=== PATIENT | female | born 1990 | race Two or more races ===

== ENCOUNTER 2017-08-19 21:01 | Emergency (ER) | payer OTHER ==
[2017-08-19] MEDS ORDERED: Diphtheria,Pertussis(Acell),Tetanus Vaccine 0.5 ML Syringe IM ONE (21:11)
[2017-08-19 21:39] LABS: CHLORIDE,CL 103 mmol/L (98-107); SODIUM,NA 138 mmol/L (136-145)
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
[2017-08-19] MEDS ORDERED: Diphtheria,Pertussis(Acell),Tetanus Vaccine 0.5 ML Syringe ONE (23:07)
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
== END 2017-08-20 00:12 | disposition home or self-care (01) ==
LOC: MERGE 21:01 → MW.ED 21:01
DX: S02.5XXA Fracture of tooth (traumatic), initial encounter for closed fracture (principal); S00.212A Abrasion of left eyelid and periocular area, initial encounter; Z23 Encounter for immunization; V89.2XXA Person injured in unspecified motor-vehicle accident, traffic, initial encounter
CPT/HCPCS: 36415; 70450; 70450-26; 70486; 70486-26; 71260; 71260-26; 72125; 72125-26; 73080-26-RT; 73080-RT; 74177; 74177-26; 80053; 80305; 81001; 81025; 85025; 90471; 90715; 99284-25

== ENCOUNTER 2018-06-11 20:11 | Emergency (ER) | payer BC ==
[2018-06-11] MEDS ORDERED: Sodium Chloride 0.9% 1,000 ML IV ONE (20:19)
[2018-06-11] MEDS ORDERED: Metoclopramide 10 MG/2 ML SDV IV ONE (20:19)
[2018-06-11] MEDS ORDERED: Ondansetron 4 MG/2 ML SDV IVPUSH ONE (20:19)
[2018-06-11] MEDS ORDERED: diphenhydrAMINE 50 MG/ML SDV IVPUSH ONE (20:19)
[2018-06-11] MEDS ORDERED: Ketorolac 30 MG/ML SDV IVPUSH ONE (20:19)
--- NOTE | 2018-06-11 20:26 | EDM.PDOC ---
ED HPI GENERAL MEDICAL PROBLEM - General Chief Complaint: Headache Stated Complaint: PT HAS MIGRAINE Time Seen by Provider: 06/11/18 20:19 Source of Information: Reports: Patient History Limitations: Reports: No Limitations - History of Present Illness INITIAL COMMENTS - FREE TEXT/NARRATIVE: HISTORY AND PHYSICAL: History of present illness: Patient is a 27-year-old female who presents to the emergency room with complaints of a migraine headache, light sensitivity and noise sensitivity and muscular neck pain. She states she has tried [id number] Excedrin Migraine without any relief. Has no prior history to migraines. Patient denies any fever, chills, change in vision, syncope or near syncope. Denies any chest pain, back pain, shortness of breath or cough. Denies any abdominal pain, vomiting, diarrhea, constipation or dysuria. Has not noted any blood in urine or stool. Patient has been eating and drinking appropriately. Review of systems: As per history of present illness and below otherwise all systems reviewed and negative. Past medical history: As per history of present illness and as reviewed below otherwise noncontributory. Surgical history: As per history of present illness and as reviewed below otherwise noncontributory. Social history: See social history for further information Family history: As per history of present illness and as reviewed below otherwise noncontributory. Physical exam: General: Well-developed and well-nourished 27-year-old -[place] female. Alert and oriented. Nontoxic appearing and in no acute distress. HEENT: Atraumatic, normocephalic, pupils equal and reactive bilaterally, negative for conjunctival pallor or scleral icterus, mucous membranes moist, TMs normal bilaterally, throat clear, neck supple, nontender, trachea midline. No drooling or trismus noted. No nuchal rigidity. No meningeal signs. No hot potato voice noted. Lungs: Clear to auscultation, breath sounds equal bilaterally, chest nontender. Heart: S1S2, regular rate and rhythm without overt murmur Abdomen: Soft, nondistended, nontender. Negative for masses. Negative for costovertebral tenderness. Pelvis: Stable nontender. Genitourinary: Deferred. Rectal: Deferred. Skin: Intact, warm, dry. No lesions or rashes noted. Extremities: Atraumatic, moves all extremities per self with difficulty or deficits, negative for cords or calf pain. Neurovascular unremarkable. Neuro: Awake, alert, oriented. Cranial nerves II through XII unremarkable. Cerebellum unremarkable. Motor and sensory unremarkable throughout. Exam nonfocal. Notes: This patient has no previous history of migraine headaches and she states this is severe I will do a head CT at this time. She does have a ride to home. We'll give her IV medications to help alleviate her discomfort. Head CT shows no acute findings. Patient does feel improvement after IV fluid and medications. Vital signs are stable. Patient's friend will drive her home. Supportive care measures were reviewed and discussed. Voices understanding and is agreeable to plan of care. Denies any further questions or concerns at this time. Diagnostics: Head CT, hCG U Therapeutics: IV fluid, Toradol, Zofran, Reglan, Benadryl Prescription: None Impression: Migraine headache Plan: 1. Please take the remainder of the day to rest in a dark and quiet room. The medications he received will cause drowsiness a do not drive for the rest of the day. 2. Tylenol and/or ibuprofen as needed for pain management. 3. Please follow-up with your primary caregiver as we discussed. Return to the ED as needed and as discussed. Definitive disposition and diagnosis as appropriate pending reevaluation and review of above. headache Pain Score (Numeric/FACES): 10 - Related Data Allergies Allergy/AdvReac Type Severity Reaction Status Date / Time No Known Allergies Allergy Verified 06/11/18 20:18 Home Meds: Home Meds . [No Known Home Meds] 08/19/17 [History] Past Medical History - Past Health History Medical/Surgical History: Denies Medical/Surgical History Social & Family History - Family History Family Medical History: Noncontributory - Tobacco Use Smoking Status *Q: Never Smoker Second Hand Smoke Exposure: No - Caffeine Use Caffeine Use: Reports: None - Recreational Drug Use Recreational Drug Use: No ED ROS GENERAL - Review of Systems Review Of Systems: ROS reveals no pertinent complaints other than HPI. - Physical Exam Exam: See Below (See dictation) Course - Vital Signs Last Recorded V/S: Last Vital Signs Temp 98.8 F 06/11/18 20:17 Pulse 95 06/11/18 21:01 Resp 18 06/11/18 20:17 BP 116/75 06/11/18 21:01 Pulse Ox 96 06/11/18 21:01 - Orders/Labs/Meds Orders: Active Orders 24 hr Category Date Time Status Head wo Cont [CT] Stat Exams 06/11/18 20:22 Taken Labs: Laboratory Tests 06/11/18 Range/Units 20:24 Urine HCG, Qual NEGATIVE (NEGATIVE) Meds: Medications Discontinued Medications Generic Name Dose Route Start Last Admin Trade Name Tina PRN Reason Stop Dose Admin Diphenhydramine HCl 50 mg 06/11/18 20:19 06/11/18 20:54 Benadryl IVPUSH 06/11/18 20:20 50 mg ONETIME ONE Administration Sodium Chloride 1,000 mls @ 999 mls/hr 06/11/18 20:19 06/11/18 20:45 Normal Saline IV 06/11/18 21:19 999 mls/hr STAT ONE Administration Ketorolac Tromethamine 30 mg 06/11/18 20:19 06/11/18 20:53 Toradol IVPUSH 06/11/18 20:20 30 mg ONETIME ONE Administration Metoclopramide HCl 5 mg 06/11/18 20:19 06/11/18 20:52 Reglan IV 06/11/18 20:20 5 mg ONETIME ONE Administration Ondansetron HCl 4 mg 06/11/18 20:19 06/11/18 20:51 Zofran IVPUSH 06/11/18 20:20 4 mg ONETIME ONE Administration Departure - Departure Time of Disposition: 21:39 Disposition: Home, Self-Care 01 Clinical Impression: Migraine - Discharge Information Instructions: Migraine Headache, [id number] Forms: ED Department Discharge Additional Instructions: The following information is given to patients seen in the emergency department who are being discharged to home. This information is to outline your options for follow-up care. We provide all patients seen in our emergency department with a follow-up referral. The need for follow-up, as well as the timing and circumstances, are variable depending upon the specifics of your emergency department visit. If you don't have a primary care physician on staff, we will provide you with a referral. We always advise you to contact your personal physician following an emergency department visit to inform them of the circumstance of the visit and for follow-up with them and/or the need for any referrals to a consulting specialist. The emergency department will also refer you to a specialist when appropriate. This referral assures that you have the opportunity for follow-up care with a specialist. All of these measure are taken in an effort to provide you with optimal care, which includes your follow-up. Under all circumstances we always encourage you to contact your private physician who remains a resource for coordinating your care. When calling for follow-up care, please make the office aware that this follow-up is from your recent emergency room visit. If for any reason you are refused follow-up, please contact the [facility] Emergency Department at and asked to speak to the emergency department charge nurse. [facility] [address] [place] [id number] [facility] [address] [place] [id number] 1. The medications you received will cause drowsiness, so do not drive for the rest of the day. Please take the remainder of the day to rest in a dark and quiet room. 2. Tylenol and/or ibuprofen as needed for pain management. 3. Please follow-up with your primary caregiver as we discussed. Return to the ED as needed and as discussed. - My Orders Last 24 Hours: My Active Orders 06/11/18 20:22 Head wo Cont [CT] Stat - Assessment/Plan Last 24 Hours: My Active Orders 06/11/18 20:22 Head wo Cont [CT] Stat
--- NOTE | 2018-06-11 21:54 | CT ---
INDICATION: Headache. TECHNIQUE: Multiple axial images were obtained through the brain without contrast. Sagittal and coronal re-formatted images were obtained. COMPARISON: 08/19/2017. FINDINGS: The ventricles and sulci are within normal limits. There is no mass effect or midline shift. There is no intracranial hemorrhage. The damian-white matter differentiation is unremarkable. There is no fracture identified on bone windows. IMPRESSION: No acute intracranial abnormality. Dictated by Wilbert Rockwell MD @ 06/11/2018 9:52:46 PM Please note that all CT scans at this facility use dose modulation, iterative reconstruction, and/or weight-based dosing when appropriate to reduce radiation dose to as low as reasonably achievable. Dictated by: Wilbert Rockwell MD @ 06/11/2018 21:53:32 (Electronically Signed)
== END 2018-06-11 22:17 | disposition home or self-care (01) ==
LOC: MW.ED 20:11
DX: G43.909 Migraine, unspecified, not intractable, without status migrainosus (principal)
CPT/HCPCS: 70450; 81025; 96361; 96374; 96375; 99284; J1200; J1885; J2405; J2765; J7040

== ENCOUNTER 2020-05-17 18:08 | Day surgery (SDC) | payer BC ==
[2020-05-17] MEDS ORDERED: Glucagon,Human Recombinant 1 MG Vial IVPUSH ONE (18:23)
[2020-05-17] MEDS ORDERED: Sodium Chloride 0.9% 1,000 ML IV ONE (18:43)
--- NOTE | 2020-05-17 19:24 | EDM.PDOC ---
ED HPI GENERAL MEDICAL PROBLEM - General Chief Complaint: ENT Problem Stated Complaint: abjust STUCK IN THROAT Time Seen by Provider: 05/17/20 18:10 Source of Information: Reports: Patient History Limitations: Reports: No Limitations - History of Present Illness INITIAL COMMENTS - FREE TEXT/NARRATIVE: HISTORY AND PHYSICAL: History of present illness: Patient is a 29-year-old female who presents emergency room today with concern of food stuck in her throat since noon. Patient states that she was eating a chicken thigh and on her first bite noted that the food got stuck. Patient states that she has not been able to eat or drink anything without immediately vomiting since. Patient states that she did try diet Coke at home but this did not work. Patient denies any health history or any other associated symptoms. Patient denies fever, chills, chest pain, shortness of breath, or cough. Denies headache, neck stiff ness, change in vision, syncope, or near syncope. Denies nausea, vomiting, abdominal pain, diarrhea, constipation, or dysuria. Has not noted any blood in urine or stool. Patient has been eating and drinking appropriately. Review of systems: As per history of present illness and below otherwise all systems reviewed and negative. Past medical history: As per history of present illness and as reviewed below otherwise noncontributory. Surgical history: As per history of present illness and as reviewed below otherwise noncontributory. Social history: See social history for further information Family history: As per history of present illness and as reviewed below otherwise noncontributory. Physical exam: General: Patient is alert, oriented, and in no acute distress. Patient sitting comfortably on exam table. Vitals stable and reviewed by me. HEENT: Atraumatic, normocephalic, pupils equal and reactive bilaterally, negative for conjunctival pallor or scleral icterus, mucous membranes moist, TMs normal bilaterally, throat clear, neck supple, nontender, trachea midline. No drooling or trismus noted. No meningeal signs. No hot potato voice noted. Lungs: Clear to auscultation, breath sounds equal bilaterally, chest nontender. Heart: S1S2, regular rate and rhythm without overt murmur Abdomen: Soft, nondistended, nontender. Negative for masses or hepatosplenomegaly. Negative for costovertebral tenderness. Pelvis: Stable nontender. Genitourinary: Deferred. Rectal: Deferred. Skin: Intact, warm, dry. No lesions or rashes noted. Extremities: Atraumatic, negative for cords or calf pain. Neurovascular unremarkable. Neuro: Awake, alert, oriented. Cranial nerves II through XII unremarkable. Cerebellum unremarkable. Motor and sensory unremarkable throughout. Exam nonfocal. Notes: Patient was given coca-cola upon arrival with immediate emesis and inability to tolerate PO intake. Glucagon given with repeat trial of PO intake with immediate emesis and inability to tolerate PO intake. Dr. Harrington, general surgery, consulted on patient and has come in to personally see and evaluate the patient. Will transfer to the OR to Dr. Harrington, Voices understanding and is agreeable to plan of care. Denies any further questions or concerns at this time. Diagnostics: COVID Therapeutics: Glucagon, NS, Impression: Esophageal food bolus Plan: Transfer to the OR to Dr. Harrington, general surgery Definitive disposition and diagnosis as appropriate pending reevaluation and review of above. - Related Data Allergies Allergy/AdvReac Type Severity Reaction Status Date / Time No Known Allergies Allergy Verified 05/17/20 18:21 Home Meds: Home Meds . [No Known Home Meds] 08/19/17 [History] Past Medical History - Past Health History Medical/Surgical History: Denies Medical/Surgical History - Infectious Disease History Infectious Disease History: Reports: None Social & Family History - Family History Family Medical History: No Pertinent Family History - Tobacco Use Tobacco Use Status *Q: Never Tobacco User - Caffeine Use Caffeine Use: Reports: None - Recreational Drug Use Recreational Drug Use: No ED ROS GENERAL - Review of Systems Review Of Systems: Comprehensive ROS is negative, except as noted in HPI. ED EXAM, GENERAL - Physical Exam Exam: See Below (see dictation) Course - Vital Signs Last Recorded V/S: Last Vital Signs Temp 97.6 F 05/17/20 21:30 Pulse 71 05/17/20 22:15 Resp 18 05/17/20 22:15 BP 128/68 05/17/20 22:15 Pulse Ox 96 05/17/20 22:15 - Orders/Labs/Meds Orders: Active Orders 24 hr Category Date Time Status Oxygen Therapy [RC] PRN Care 05/17/20 19:24 Active Pulse Oximetry [RC] INTERMITTENT Care 05/17/20 20:52 Active Ready for Discharge [RC] PER UNIT ROUTINE Care 05/17/20 21:08 Active Up ad Sana [RC] ASDIRECTED Care 05/17/20 20:52 Active Vital Signs [RC] PER UNIT ROUTINE Care 05/17/20 19:24 Active Vital Signs [RC] PER UNIT ROUTINE Care 05/17/20 20:52 Active Advance Diet Instructions [DIET] Diet 05/17/20 Breakfast Active Nothing per Oral After Midnight Diet [DIET] Diet 05/17/20 Dinner Active Lactated Ringers [Ringers, Lactated] 1,000 ml Med 05/17/20 21:00 Active IV ASDIRECTED Resuscitation Status Routine Resus Stat 05/17/20 19:23 Ordered Medication Orders Lactated Ringer's (Ringers, Lactated) 1,000 mls @ 125 mls/hr IV ASDIRECTED CAROLA Labs: Laboratory Tests 05/17/20 05/17/20 Range/Units 18:42 19:56 Urine HCG, Qual NEGATIVE (NEGATIVE) Influenza Type A RNA NEGATIVE (NEGATIVE) Influenza Type B RNA NEGATIVE (NEGATIVE) SARS-CoV-2 RNA (THERESA) NEGATIVE (NEGATIVE) Meds: Medications Generic Name Dose Route Start Last Admin Trade Name Freq PRN Reason Stop Dose Admin Lactated Ringer's 1,000 mls @ 125 mls/hr 05/17/20 21:00 Ringers, Lactated IV ASDIRECTED CAROLA Discontinued Medications Generic Name Dose Route Start Last Admin Trade Name Freq PRN Reason Stop Dose Admin Glucagon 1 mg 05/17/20 18:23 05/17/20 18:32 Glucagon,Human Recombinant 1 Mg Vial IVPUSH 05/17/20 18:24 1 mg ONETIME ONE Administration Glycopyrrolate Confirm 05/17/20 19:43 Glycopyrrolate 0.2 Mg/Ml Sdv Administered 05/17/20 19:44 Dose 0.2 mg .ROUTE .STK-MED ONE Sodium Chloride 1,000 mls @ 999 mls/hr 05/17/20 18:43 05/17/20 18:52 Normal Saline IV 05/17/20 19:43 999 mls/hr STAT ONE Administration Lactated Ringer's 1,000 mls @ 125 mls/hr 05/17/20 19:30 Ringers, Lactated IV ASDIRECTED CAROLA Lidocaine Confirm 05/17/20 19:43 Lidocaine 2% 5 Ml Sdv Administered 05/17/20 19:44 Dose 5 ml .ROUTE .STK-MED ONE Midazolam HCl Confirm 05/17/20 19:40 Midazolam 1 Mg/Ml 2 Ml Sdv Administered 05/17/20 19:41 Dose 2 mg .ROUTE .STK-MED ONE Propofol Confirm 05/17/20 19:40 Propofol 200 Mg/20 Ml Sdv Administered 05/17/20 19:41 Dose 200 mg .ROUTE .STK-MED ONE Propofol Confirm 05/17/20 20:23 Propofol 200 Mg/20 Ml Sdv Administered 05/17/20 20:24 Dose 200 mg .ROUTE .STK-MED ONE Departure - Departure Time of Disposition: 19:23 Disposition: Still A Patient 28 Clinical Impression: Food impaction of esophagus Qualifiers: Encounter type: initial encounter Qualified Code(s): T18.128A - Food in esophagus causing other injury, initial encounter - Discharge Information Sepsis Event Note (ED) - Evaluation Sepsis Screening Result: No Definite Risk - Focused Exam Vital Signs: Vital Signs Temp Pulse Resp BP Pulse Ox 05/17/20 22:15 71 18 128/68 96 05/17/20 22:00 80 116/65 95 05/17/20 21:45 85 18 113/63 96 05/17/20 21:30 97.6 F 86 16 130/74 97 05/17/20 21:17 95 22 H 125/76 98 05/17/20 21:12 99 20 124/67 100 05/17/20 21:08 101 H 19 112/72 100 05/17/20 21:02 106 H 26 H 106/63 96 05/17/20 20:56 98.2 F 103 H 22 H 109/55 L 94 L 05/17/20 18:19 97.0 F 76 16 113/72 96
--- NOTE | 2020-05-17 19:29 | PCM.CONS ---
H&P History of Present Illness - General Date of Service: 05/17/20 Admit Problem/Dx: Foreign body obstruction of the esophagus Source of Information: Patient History Limitations: Reports: No Limitations - History of Present Illness Initial Comments - Free Text/Narative: Patient is a 29-year-old female who was eating chicken this morning about 11 AM. The food became stuck in her esophagus and she has been unable to clear this. She has had this problem in the past, but is always been able to resolve it without medical assistance. She has never required emergent endoscopy for foreign body removal. Onset of Symptoms: Reports: Today Symptom Onset Date: 05/17/20 Symptom Onset Time: 11:00 Duration of Symptoms: Reports: Hour(s): Location: Reports: Chest Quality: Reports: Pressure Severity: Moderate Improves with: Reports: None Worsens with: Reports: Eating Associated Symptoms: Reports: No Other Symptoms - Related Data Allergies/Adverse Reactions: Allergies Allergy/AdvReac Type Severity Reaction Status Date / Time No Known Allergies Allergy Verified 05/17/20 18:21 Home Medications: Home Meds . [No Known Home Meds] 08/19/17 [History] Past Medical History - Past Health History Medical/Surgical History: Denies Medical/Surgical History - Infectious Disease History Infectious Disease History: Reports: None Social & Family History - Family History Family Medical History: No Pertinent Family History - Tobacco Use Tobacco Use Status *Q: Never Tobacco User - Caffeine Use Caffeine Use: Reports: None - Recreational Drug Use Recreational Drug Use: No H&P Review of Systems - Review of Systems: Review Of Systems: See Below General: Denies: Fever, Chills, Malaise, Weakness, Fatigue HEENT: Reports: No Symptoms Pulmonary: Denies: Shortness of Breath, Wheezing Cardiovascular: Denies: Chest Pain, Palpitations, Dyspnea on Exertion Gastrointestinal: Reports: Nausea, Vomiting. Denies: Abdominal Pain, Anorexia, Constipation, Diarrhea, Distension, Flatus Genitourinary: Reports: No Symptoms Musculoskeletal: Reports: No Symptoms Skin: Reports: No Symptoms Psychiatric: Reports: No Symptoms Neurological: Reports: No Symptoms Hematologic/Lymphatic: Reports: No Symptoms Immunologic: Reports: No Symptoms Exam - Exam Exam: See Below - Vital Signs Vital Signs: Last Vital Signs Temp 97.0 F 05/17/20 18:19 Pulse 76 05/17/20 18:19 Resp 16 05/17/20 18:19 BP 113/72 05/17/20 18:19 Pulse Ox 96 05/17/20 18:19 Weight: 150 lb - Exam Quality Assessment: No: Supplemental Oxygen, DVT Prophylaxis General: Alert, Oriented, Cooperative, Moderate Distress HEENT: Conjunctiva Clear, Nares Patent, Pupils Equal, Pupils Reactive Neck: Supple, Trachea Midline Lungs: Clear to Auscultation, Normal Respiratory Effort Cardiovascular: Regular Rate, Regular Rhythm. No: Tachycardia GI/Abdominal Exam: Normal Bowel Sounds, Soft, Non-Tender (Female) Exam: Deferred Rectal (Female) Exam: Deferred Back Exam: Normal Inspection Extremities: Normal Inspection, Normal Range of Motion Skin: Warm, Dry, Intact Sepsis Event Note - Evaluation Sepsis Screening Result: No Definite Risk - Focused Exam Vital Signs: Vital Signs Temp Pulse Resp BP Pulse Ox 05/17/20 18:19 97.0 F 76 16 113/72 96 Consult PN Assessment/Plan Procedures: Procedures ASSAY OF FERRITIN (05/15/19) ASSAY OF FREE THYROXINE (05/15/19) ASSAY OF LIPASE (05/12/17) ASSAY THYROID STIM HORMONE (05/15/19) CHYLMD TRACH DNA AMP PROBE (05/12/17) COMPLETE CBC W/AUTO DIFF WBC (05/15/19) COMPREHEN METABOLIC PANEL (05/15/19) CT ABD & PELV W/CONTRAST (08/19/17) CT HEAD/BRAIN W/O DYE (06/11/18) CT MAXILLOFACIAL W/O DYE (08/19/17) CT NECK SPINE W/O DYE (08/19/17) CT THORAX DX C+ (08/19/17) DRUG TEST PRSMV DIR OPT OBS (08/19/17) EMERGENCY DEPT VISIT (06/11/18) HELICOBACTER PYLORI ANTIBODY (05/12/17) HYDRATE IV INFUSION ADD-ON (06/11/18) IMMUNIZATION ADMIN (08/19/17) IRON BINDING TEST (05/15/19) N.GONORRHOEAE DNA AMP PROB (05/12/17) ROUTINE VENIPUNCTURE (05/15/19) TDAP VACCINE 7 YRS/> IM (08/19/17) THER/PROPH/DIAG INJ IV PUSH (06/11/18) TX/PRO/DX INJ NEW DRUG ADDON (06/11/18) URINALYSIS AUTO W/SCOPE (05/15/19) URINE CULTURE/COLONY COUNT (05/15/19) URINE TEST (06/11/18) X-RAY EXAM OF ELBOW (08/19/17) (1) Food impaction of esophagus SNOMED Code(s): 879831485 Code(s): T18.128A - FOOD IN ESOPHAGUS CAUSING OTHER INJURY, INITIAL ENCOUNTER Priority: High Current Visit: Yes Qualifiers: Encounter type: initial encounter Qualified Code(s): T18.128A - Food in esophagus causing other injury, initial encounter Problem List Initiated/Reviewed/Updated: Yes My Orders Last 24 Hours: My Active Orders 05/17/20 Dinner Nothing per Oral After Midnight Diet [DIET] 05/17/20 19:23 Resuscitation Status Routine 05/17/20 19:24 Oxygen Therapy [RC] PRN Vital Signs [RC] PER UNIT ROUTINE 05/17/20 19:30 Lactated Ringers @ 125 MLS/HR(1000ml) Lactated Ringers [Ringers, Lactated] 1,000 ml IV ASDIRECTED Plan: Esophagogastroduodenoscopy with removal of esophageal foreign body and biopsy. The operative procedure, along with the risks, including, but not limited to, bleeding, perforation, and the need for surgery were discussed with the patient who voices understanding, offers no questions and wishes to proceed.
--- NOTE | 2020-05-17 19:29 | PCM.SN.2 ---
- Free Text/Narrative Note: Chief Complaint: Dysphagia following ingestion of chicken HPI: Livan Saxena is a 29 year old otherwise healthy female who presents to ED with 5 hour history of dysphagia and even inability to swallow following ingestion of chicken at about 1100 today. She has had dysphagia in the past and this was self medicated with small bites and self induced emesis. She has never had an EGD before. She was not able to force herself to vomit after this incident. She was unable to swallow her own saliva and so she presented to ED. She denies nausea, fevers, chills, chest pain, shortness of breath, coughing or wheezing. PMH: None Medications: Patient does not take any medications Allergies: None PSH: None FH: Noncontributory SH: Denies tobacco or alcohol use. 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 ROS: Gen: See HPI Resp: See HPI GI: See HPI HEENT: Denies coughing, rhinorrhea, sore throat : Denies dysuria MSK: Denies joint pains, muscle aches Skin: Denies rashes Neuro: Denies numbness or weakness Physical exam: Vital signs are stable on room air Gen: NAD Neck: Symmetric, no swelling HEENT: Normal oral mucosa. No definite foreign body present in mouth. No pooling of secretions in mouth. Patient is spitting into emesis bag at her side at times. Resp: Lungs are clear to auscultation bilaterally. Nonlabored breathing present on room air. Abd: Soft, nontender and nondistended Skin: No rashes Lower extremities: No swelling. Labs and imaging: COVID test pending Assessment: 29 year old healthy female presenting with most likely esophageal foreign body. Plan: -Will take to GI suite for EGD this evening.
[2020-05-17 19:30] LABS: CORONAVIRUS COVID-19 NAA NEGATIVE (NEGATIVE); INFLUENZA A NAA NEGATIVE (NEGATIVE); INFLUENZA B NAA NEGATIVE (NEGATIVE)
[2020-05-17] MEDS ORDERED: Lactated Ringers 1,000 ML IV SCH ×2 (19:30→21:00)
[2020-05-17] MEDS ORDERED: Midazolam 1 MG/ML 2 ML SDV ONE (19:40)
[2020-05-17] MEDS ORDERED: Propofol 200 MG/20 ML SDV ONE ×2 (19:40→20:23)
[2020-05-17] MEDS ORDERED: Succinylcholine/Sod PF 100 MG/5 ML SYRINGE IV ONE (19:43)
[2020-05-17] MEDS ORDERED: Lidocaine 2% 5 ML SDV ONE (19:43)
[2020-05-17] MEDS ORDERED: Glycopyrrolate 0.2 MG/ML SDV ONE (19:43)
--- NOTE | 2020-05-17 21:02 | PCM.PREANE ---
Preanesthetic Assessment - Anesthesia/Transfusion/Family Hx Anesthesia History: Prior Anesthesia Without Reaction Family History of Anesthesia Reaction: No - Physical Assessment NPO Status Date: 05/17/20 NPO Status Time: 11:00 Vital Signs: Last Vital Signs Temp 36.8 C 05/17/20 20:56 Pulse 103 H 05/17/20 20:56 Resp 22 H 05/17/20 20:56 BP 109/55 L 05/17/20 20:56 Pulse Ox 94 L 05/17/20 20:56 Height: 1.65 m Weight: 68.039 kg ASA Class: 1E Dentition: Reports: Dentures - Lab Values: Laboratory Last Values Urine HCG, Qual NEGATIVE (NEGATIVE) 05/17/20 19:56 Influenza Type A RNA NEGATIVE (NEGATIVE) 05/17/20 18:42 Influenza Type B RNA NEGATIVE (NEGATIVE) 05/17/20 18:42 SARS-CoV-2 RNA (THERESA) NEGATIVE (NEGATIVE) 05/17/20 18:42 - Allergies Allergies/Adverse Reactions: Allergies Allergy/AdvReac Type Severity Reaction Status Date / Time No Known Allergies Allergy Verified 05/17/20 18:21 - Acknowledgements Anesthesia Type Planned: General Anesthesia Pt an Appropriate Candidate for the Planned Anesthesia: Yes Alternatives and Risks of Anesthesia Discussed w Pt/Guardian: Yes Pt/Guardian Understands and Agrees with Anesthesia Plan: Yes PreAnesthesia Questionnaire - Past Health History Medical/Surgical History: Denies Medical/Surgical History - Infectious Disease History Infectious Disease History: Reports: None - SUBSTANCE USE Tobacco Use Status *Q: Never Tobacco User Recreational Drug Use History: No - HOME MEDS Home Medications: Home Meds . [No Known Home Meds] 08/19/17 [History] - CURRENT (IN HOUSE) MEDS Current Meds: Current Medications Lactated Ringer's (Ringers, Lactated) 1,000 mls @ 125 mls/hr IV ASDIRECTED CAROLA Discontinued Medications Glucagon (Glucagon,Human Recombinant 1 Mg Vial) 1 mg IVPUSH ONETIME ONE Stop: 05/17/20 18:24 Last Admin: 05/17/20 18:32 Dose: 1 mg Documented by: Glycopyrrolate (Glycopyrrolate 0.2 Mg/Ml Sdv) Confirm Administered Dose 0.2 mg .ROUTE .STK-MED ONE Stop: 05/17/20 19:44 Sodium Chloride (Normal Saline) 1,000 mls @ 999 mls/hr IV STAT ONE Stop: 05/17/20 19:43 Last Admin: 05/17/20 18:52 Dose: 999 mls/hr Documented by: Lactated Ringer's (Ringers, Lactated) 1,000 mls @ 125 mls/hr IV ASDIRECTED [place]OL[place] Lidocaine (Lidocaine 2% 5 Ml Sdv) Confirm Administered Dose 5 ml .ROUTE .STK-MED ONE Stop: 05/17/20 19:44 Midazolam HCl (Midazolam 1 Mg/Ml 2 Ml Sdv) Confirm Administered Dose 2 mg .ROUTE .STK-MED ONE Stop: 05/17/20 19:41 Propofol (Propofol 200 Mg/20 Ml Sdv) Confirm Administered Dose 200 mg .ROUTE .STK-MED ONE Stop: 05/17/20 19:41 Propofol (Propofol 200 Mg/20 Ml Sdv) Confirm Administered Dose 200 mg .ROUTE .STK-MED ONE Stop: 05/17/20 20:24
--- NOTE | 2020-05-17 21:07 | PCM.OPNOTE ---
- General Post-Op/Procedure Note Date of Surgery/Procedure: 05/17/20 Operative Procedure(s): Attempted esophagogastroduodenoscopy with balloon dilatation to 36 [place] of a proximal esophageal stricture. Examination of the stomach using a disposable bronchoscope. Pre Op Diagnosis: Esophageal foreign body obstruction Post-Op Diagnosis: Foreign body of esophagus. Proximal esophageal stricture. Anesthesia Technique: General ET Tube (ASA IE) Primary Surgeon: Hugo Harrington Front Elevator Operator: Mendoza Hooper Condition: Fair Free Text/Narrative:: DICTATION 483602 CPT CODE 88274/[id number]
--- NOTE | 2020-05-17 21:18 | PCM.POSTAN ---
POST ANESTHESIA ASSESSMENT - VITAL SIGNS Vital Signs: Last Vital Signs Temp 36.8 C 05/17/20 20:56 Pulse 99 05/17/20 21:12 Resp 20 05/17/20 21:12 BP 124/67 05/17/20 21:12 Pulse Ox 100 05/17/20 21:12 - RESPIRATORY Respiratory Status: Respiratory Rate WNL - CARDIOVASCULAR CV Status: Pulse Rate WNL - GASTROINTESTINAL GI Status: No Symptoms - POST OP HYDRATION Hydration Status: Adequate & Stable
--- NOTE | 2020-05-17 21:21 | PCM48HPAN ---
Post Anesthesia Note - EVALUATION WITHIN 48HRS OF ANESTHETIC Vital Signs in Normal Range: Yes Patient Participated in Evaluation: Yes Respiratory Function Stable: Yes Airway Patent: Yes Cardiovascular Function Stable: Yes Hydration Status Stable: Yes Pain Control Satisfactory: Yes Nausea and Vomiting Control Satisfactory: Yes Mental Status Recovered: Yes Vital Signs: Last Vital Signs Temp 36.8 C 05/17/20 20:56 Pulse 99 05/17/20 21:12 Resp 20 05/17/20 21:12 BP 124/67 05/17/20 21:12 Pulse Ox 100 05/17/20 21:12
--- NOTE | 2020-05-17 22:43 | OR ---
SURGEON: Hugo Harrington M.D. DATE OF PROCEDURE: 05/17/2020 OPERATION PERFORMED: Esophagogastroduodenoscopy with removal of proximal esophageal foreign body. PRIMARY SURGEON: Hugo Harrington M.D. SUPERVISOR POLICY CHANGE CLERKS: Manager Account Management: Dr. Hooper, PGY-2. ANESTHESIA: General endotracheal. ASA CLASSIFICATION: IE. PREOPERATIVE DIAGNOSIS: Foreign body obstruction of the esophagus. POSTOPERATIVE DIAGNOSIS: Foreign body obstruction of the esophagus with proximal esophageal stricture at 15 cm. DESCRIPTION OF PROCEDURE: The patient was taken to the operating room and placed on the transfer cart in the supine position. A time-out was called for appropriate identification of the patient and procedure. Following satisfactory attainment of general endotracheal anesthesia with cricoid pressure, the gastroscope was inserted into the mouth. At 15 cm, the foreign body was immediately encountered. I did attempt to grasp this with the grasping forceps through the biopsy forceps, but it would not hold. We pulled back and realized that the foreign body was in the hypopharynx. Using a standard laryngoscope, I was able to retrieve the foreign body. We then placed the gastroscope back into the oropharynx and tried to advance it through this stricture. The stricture was at approximately 15 cm from the incisors, and I was not able to traverse this safely with the gastroscope. A balloon dilator was brought to the operating room, and balloon dilatation to 36-K[place] was carried out. Despite that, I again could not advance the gastroscope through this area. We then obtained a disposable bronchoscope, and I was able to advance this through the narrowed area and I actually advanced it into the stomach and visualized the pylorus. There was no biopsy channel available on that, and so no biopsies were obtained. It was clear that the scope was in the stomach. I was able to retroflex the flexible proctoscope confirming position and did not see any other foreign bodies in the stomach. The scope was then slowly withdrawn and the stricture again visualized. No other foreign body obstruction was noted in the esophagus. It was not felt safe to proceed further with endoscopic evaluation given the significant narrowing and rigid nature of the stricture. This patient would benefit from repeat endoscopy with a pediatric gastroscope. That will be discussed with the patient in the office when she returns. The patient tolerated the procedure well. Following emergence from anesthesia and extubation, she was taken to recovery room in stable condition. ANDEWAY / MODL /[id number]
== END 2020-05-18 | disposition home or self-care (01) ==
LOC: MW.ED 18:08 → MW.SDS 19:27 → MW.MS 20:55 → MW.SDS 05-18
PROVIDERS: ATTEND Surgery
DX: T18.128A Food in esophagus causing other injury, initial encounter (principal); K22.2 Esophageal obstruction; Z01.812 Encounter for preprocedural laboratory examination; Z20.822 Contact with and (suspected) exposure to COVID-19
CPT/HCPCS: 0240U; 43247; 81025; J0330; J1610; J2250; J2704; J3490; J7030; 99284